=== PATIENT | male | born 1990 | race Caucasian/White ===

== ENCOUNTER 2017-02-17 16:13 | Emergency (ER) | payer SELFPAY ==
[~2017-02-17] VITALS: Ht 170.2 cm; Wt 65.0 kg
[2017-02-17] MEDS ORDERED: CEFAZOLIN 1,000 MG IM ONE (16:17)
[2017-02-17] MEDS ORDERED: LIDOCAINE 1%-EPI 1:100K, 50ML INFIL ONE (16:30)
[2017-02-17] MEDS ORDERED: CEFAZOLIN PMX 1GM/50ML 50 ML IVPB ONE (16:30)
[2017-02-17] MEDS ORDERED: LIDOCAINE 1%, 20ML ONE (16:30)
[2017-02-17] MEDS ORDERED: CEFAZOLIN PMX 1GM/50ML 50 ML ONE (16:33)
[2017-02-17] MEDS ORDERED: DIPH,PERTUSS(ACELL),TET VAC/PF 0.5 ML IM-VACC ONE ×2 (18:30→18:40)
[2017-02-17 18:56] VITALS: BP 120/71
== END 2017-02-17 18:58 | disposition home or self-care (01) ==
LOC: ED 18:49
DX: S01.511A Laceration without foreign body of lip, initial encounter (principal); Z23 Encounter for immunization; Y08.89XA Assault by other specified means, initial encounter; Y93.89 Activity, other specified; Y99.8 Other external cause status; Y92.009 Unspecified place in unspecified non-institutional (private) residence as the place of occurrence of the external cause
CPT/HCPCS: 13132; 70486; 90471; 90715; 96365; 99285; J0690

== ENCOUNTER 2019-02-15 00:27 | Emergency (ER) | payer SELFPAY ==
[~2019-02-15] VITALS: Ht 160 cm; Wt 61.2 kg
[2019-02-15 00:29] VITALS: BP 121/79
== END 2019-02-15 01:53 | disposition home or self-care (01) ==
LOC: ED 01:20
DX: S60.222A Contusion of left hand, initial encounter (principal); F17.200 Nicotine dependence, unspecified, uncomplicated; X58.XXXA Exposure to other specified factors, initial encounter; Y93.89 Activity, other specified; Y92.830 Public park as the place of occurrence of the external cause; Y99.8 Other external cause status
CPT/HCPCS: 12041; 99284

== ENCOUNTER 2019-08-08 14:42 | Inpatient (IN) | payer OTHER ==
[~2019-08-08] VITALS: Ht 180.3 cm; Wt 63.8 kg
[2019-08-08] MEDS ORDERED: KETOROLAC 60 MG/2 ML ONE (15:58)
[2019-08-08] MEDS ORDERED: SODIUM CHLORIDE 0.9% 1,000ML IVBOLUS ONE (16:00)
[2019-08-08] MEDS ORDERED: KETOROLAC 30 MG/1 ML IM/IV ONE (16:00)
[2019-08-08 16:05] LABS: ANION GAP 9 mmol/L (5-15); CALCIUM 8.9 mg/dL (8.5-10.1); CHLORIDE 102 mmol/L (98-107); CREATININE 1.02 mg/dL (0.7-1.3)
[2019-08-08 16:15] LABS: MEAN CORPUSCULAR HGB CONC 33.4 g/dL (33.2-36.2); MEAN CORPUSCULAR VOLUME 95.8 fL (81-97); MEAN PLATELET VOLUME 7.9 fL (7.4-10.4); PLATELET COUNT 286 x10^3/uL (130-400); RED BLOOD COUNT 5.18 x10^6/uL (4.38-5.82); RED CELL DISTRIBUTION WIDTH 13.5 % (9.4-14.8)
[2019-08-08 16:29] LABS: MD YES
[2019-08-08 16:31] LABS: <PLATELET ESTIMATE> ADEQUATE; <PLT MORPHOLOGY> NORMAL PLT MORPH; <RBC MORPHOLOGY> NORMAL; BAND#(MANUAL) 1.73 x10^3/uL; BANDS%(MANUAL) 12 % (0-7); LYMPH#(MANUAL) 1.15 x10^3/uL (1-3.4); LYMPHS% (MANUAL) 8 % (22-44); MONOS% (MANUAL) 9 % (2-9); SEG#(MANUAL) 10.22 x10^3/uL (1.8-6.8); SEGS% (MANUAL) 71 % (42-75)
[2019-08-08] MEDS ORDERED: AMPICILLIN/SULBACTAM 3 GM in SODIUM CHLORIDE 0.9% 100 ML IV ONE (17:30)
--- NOTE | 2019-08-08 17:31 | NUR ---
PT IN CT NOW
[2019-08-08] MEDS ORDERED: OMNIPAQUE 350 MG/ML, 75ML BOTTLE ONE (17:37)
--- NOTE | 2019-08-08 17:50 | NUR ---
UP TO RESTROOM FOR UA. AMBULATES WITH A STEADY GAIT.
--- NOTE | 2019-08-08 17:56 | NUR ---
dr danielle spoke with dr cornelius
[2019-08-08 18:20] LABS: MICROSCOPIC NOT IND
[2019-08-08 18:24] LABS: CULTURE INDICATED? NO
[2019-08-08 18:29] LABS: AMPHETAMINE SCREEN, URINE Positive (Negative); BARBITURATE SCREEN, URINE Negative (Negative); BENZODIAZEPINE SCREEN, URINE Negative (Negative); CANNABINOID SCREEN, URINE Negative (Negative); COCAINE SCREEN, URINE Negative (Negative); METHADONE SCREEN, URINE Negative (Negative); OPIATE SCREEN, URINE Negative (Negative)
[2019-08-08] MEDS ORDERED: MORPHINE SULFATE 4 MG/ML, 1ML IVPush PRN (18:30)
[2019-08-08] MEDS ORDERED: LIDOCAINE 1%-EPI 1:100K, 20ML ONE (19:18)
[2019-08-08] MEDS ORDERED: hydrALAzine 20 MG/ML, 1ML IVPush PRN (19:30)
[2019-08-08] MEDS ORDERED: ONDANSETRON ODT 4 MG PO PRN (19:30)
[2019-08-08] MEDS ORDERED: POLYETHYLENE GLYCOL 17 GM PACKET PO PRN (19:30)
[2019-08-08] MEDS ORDERED: DOCUSATE 100 MG CAPSULE PO PRN (19:30)
[2019-08-08] MEDS ORDERED: BISACODYL 10 MG SUPP PR PRN (19:30)
[2019-08-08] MEDS ORDERED: ONDANSETRON 2MG/ML, 2ML IVPush PRN (19:30)
[2019-08-08] MEDS ORDERED: ACETAMINOPHEN 325 MG TABLET PO PRN (19:30)
[2019-08-08] MEDS ORDERED: morphine SULFATE 10 MG/ML, 1ML IVPush PRN (19:30)
[2019-08-08] MEDS ORDERED: PROMETHAZINE 25 MG/ML, 1ML IM PRN (19:30)
[2019-08-08 20:25] VITALS: BP 120/83
[2019-08-08] MEDS: KETOROLAC 30 MG/1 ML IVPush SCH (21:13)
[2019-08-08] MEDS: SODIUM CHLORIDE 0.9% 1,000 ML IV SCH (21:14)
[2019-08-08 21:51] LABS: FREE T4 (FREE THYROXINE) 0.81 ng/dL (0.76-1.46)
[2019-08-08] MEDS: AMPICILLIN/SULBACTAM 3 GM in SODIUM CHLORIDE 0.9% 100 ML IV SCH (23:29)
[2019-08-09 00:58] VITALS: BP 129/87
[2019-08-09] MEDS: KETOROLAC 30 MG/1 ML IVPush SCH ×4 (02:55→20:30)
[2019-08-09 05:54] LABS: ALBUMIN 2.9 g/dL (3.4-5.0); ANION GAP 9 mmol/L (5-15); CALCIUM 8.5 mg/dL (8.5-10.1); CHLORIDE 106 mmol/L (98-107)
[2019-08-09 05:56] LABS: MEAN CORPUSCULAR HGB CONC 33.5 g/dL (33.2-36.2); MEAN CORPUSCULAR VOLUME 95.5 fL (81-97); MEAN PLATELET VOLUME 8.1 fL (7.4-10.4); PLATELET COUNT 232 x10^3/uL (130-400); RED BLOOD COUNT 4.11 x10^6/uL (4.38-5.82); RED CELL DISTRIBUTION WIDTH 13.4 % (9.4-14.8)
[2019-08-09 05:57] LABS: ALANINE AMINOTRANSFERASE 37 U/L (12-78); ALKALINE PHOSPHATASE 56 U/L (45-117); BILIRUBIN,TOTAL 0.5 mg/dL (0.2-1.0); CHOL/HDL RATIO 2.5; CHOLESTEROL, TOTAL 103 mg/dL (140-239); CREATININE 0.85 mg/dL (0.7-1.3); HDL CHOLESTEROL (DIRECT) 41 mg/dL (40-60); TOTAL PROTEIN 6.9 g/dL (6.4-8.2); TRIGLYCERIDES 57 mg/dL (50-200); VLDL CHOLESTEROL 11 mg/dL (0-25)
[2019-08-09 05:58] LABS: HDL CHOL % 40 % (26-37); LDL CHOLESTEROL,CALCULATED 51 mg/dL (54-169); LDL/HDL RATIO 1.2 (0.5-3.0)
[2019-08-09] MEDS: AMPICILLIN/SULBACTAM 3 GM in SODIUM CHLORIDE 0.9% 100 ML IV SCH ×4 (06:07→23:06)
[2019-08-09 06:22] VITALS: BP 110/74
[2019-08-09 06:47] LABS: BASOPHILS # (AUTO) 0.01 x10^3/uL (0-0.1); BASOPHILS % (AUTO) 0 % (0-1); EOSINOPHILS # (AUTO) 0.04 x10^3/uL (0-0.4); EOSINOPHILS % (AUTO) 0 % (1-7); LYMPHOCYTES # (AUTO) 1.25 x10^3/uL (1-3.4); LYMPHOCYTES % (AUTO) 10 % (22-44); MD SCAN; MONOCYTES # (AUTO) 1.62 x10^3/uL (0.2-0.8); MONOCYTES % (AUTO) 13 % (2-9); NEUTROPHILS # (AUTO) 9.36 x10^3/uL (1.8-6.8); NEUTROPHILS % (AUTO) 76 % (42-75)
[2019-08-09] MEDS: SODIUM CHLORIDE 0.9% 1,000 ML IV SCH (08:45)
[2019-08-09] MEDS ORDERED: POTASSIUM CHLORIDE 20 MEQ in SODIUM CHLORIDE 0.9% 250 ML IV ONE (09:30)
[2019-08-09] MEDS ORDERED: MAGNESIUM SULFATE PMX 2GM/50ML 50 ML IV ONE (09:30)
[2019-08-09] MEDS: MULTIVITS,STRESS FORMULA 1 TABLET PO SCH (09:42)
[2019-08-09 11:55] VITALS: BP 111/73
[2019-08-09] MEDS: OXYcodone IR 5MG TABLET PO PRN ×2 (12:13→17:23)
[2019-08-09] MEDS: DEXAMETHASONE 4 MG TABLET PO SCH ×2 (15:20→23:06)
[2019-08-09] MEDS: CHOLECALCIFEROL 400 UNITS TABLET PO SCH (15:21)
[2019-08-09] MEDS: ASCORBIC ACID 500 MG TABLET PO SCH (17:22)
[2019-08-09 19:46] VITALS: BP 127/84
[2019-08-10 01:16] VITALS: BP 128/82
[2019-08-10] MEDS: KETOROLAC 30 MG/1 ML IVPush SCH ×4 (03:10→20:50)
[2019-08-10] MEDS: AMPICILLIN/SULBACTAM 3 GM in SODIUM CHLORIDE 0.9% 100 ML IV SCH ×4 (05:11→23:34)
[2019-08-10 05:24] LABS: ANION GAP 7 mmol/L (5-15); BASOPHILS % (AUTO) 0 % (0-1); CHLORIDE 103 mmol/L (98-107); EOSINOPHILS % (AUTO) 0 % (1-7); LYMPHOCYTES # (AUTO) 0.41 x10^3/uL (1-3.4); LYMPHOCYTES % (AUTO) 4 % (22-44); MD NO; MEAN CORPUSCULAR HEMOGLOBIN 32.2 pg (27.5-34.5); MEAN CORPUSCULAR HGB CONC 33.6 g/dL (33.2-36.2); MEAN CORPUSCULAR VOLUME 95.7 fL (81-97); MONOCYTES % (AUTO) 3 % (2-9); NEUTROPHILS # (AUTO) 9.88 x10^3/uL (1.8-6.8); NEUTROPHILS % (AUTO) 93 % (42-75); PLATELET COUNT 265 x10^3/uL (130-400); RED BLOOD COUNT 4.07 x10^6/uL (4.38-5.82); RED CELL DISTRIBUTION WIDTH 13.2 % (9.4-14.8)
[2019-08-10 05:25] LABS: CREATININE 0.88 mg/dL (0.7-1.3)
[2019-08-10 06:48] VITALS: BP 114/72
[2019-08-10] MEDS: DEXAMETHASONE 4 MG TABLET PO SCH ×2 (08:07→16:53)
[2019-08-10] MEDS: ASCORBIC ACID 500 MG TABLET PO SCH ×2 (08:07→16:53)
[2019-08-10] MEDS: MULTIVITS,STRESS FORMULA 1 TABLET PO SCH (08:09)
[2019-08-10] MEDS: OXYcodone IR 5MG TABLET PO PRN (08:09)
[2019-08-10 12:37] VITALS: BP 111/61
[2019-08-10 13:01] VITALS: BP 112/75
[2019-08-10] MEDS: CHOLECALCIFEROL 400 UNITS TABLET PO SCH (16:53)
[2019-08-10 19:34] VITALS: BP 125/83
[2019-08-10] MEDS ORDERED: OMNIPAQUE 350 MG/ML, 75ML BOTTLE ONE (22:57)
[2019-08-11] MEDS: KETOROLAC 30 MG/1 ML IVPush SCH ×2 (03:00→09:00)
[2019-08-11] MEDS: AMPICILLIN/SULBACTAM 3 GM in SODIUM CHLORIDE 0.9% 100 ML IV SCH ×2 (05:28→11:30)
[2019-08-11 05:46] LABS: BASOPHILS % (AUTO) 0 % (0-1); EOSINOPHILS # (AUTO) 0.04 x10^3/uL (0-0.4); EOSINOPHILS % (AUTO) 0 % (1-7); LYMPHOCYTES % (AUTO) 6 % (22-44); MD NO; MEAN CORPUSCULAR HEMOGLOBIN 32.1 pg (27.5-34.5); MEAN CORPUSCULAR HGB CONC 33.4 g/dL (33.2-36.2); MEAN CORPUSCULAR VOLUME 96.1 fL (81-97); MONOCYTES # (AUTO) 1.03 x10^3/uL (0.2-0.8); MONOCYTES % (AUTO) 8 % (2-9); NEUTROPHILS # (AUTO) 11.18 x10^3/uL (1.8-6.8); NEUTROPHILS % (AUTO) 86 % (42-75); PLATELET COUNT 317 x10^3/uL (130-400); RED BLOOD COUNT 3.77 x10^6/uL (4.38-5.82); RED CELL DISTRIBUTION WIDTH 13.9 % (9.4-14.8)
[2019-08-11 05:48] LABS: ALBUMIN 2.9 g/dL (3.4-5.0); ANION GAP 8 mmol/L (5-15); CALCIUM 8.4 mg/dL (8.5-10.1); CHLORIDE 108 mmol/L (98-107)
[2019-08-11 05:49] LABS: CREATININE 0.68 mg/dL (0.7-1.3)
[2019-08-11] MEDS ORDERED: LIDOCAINE 1%-EPI 1:100K, 20ML ONE (06:12)
[2019-08-11] MEDS ORDERED: BUPIVACAINE/PF-EPI 0.25% 1:200K ONE (06:12)
[2019-08-11] MEDS ORDERED: MIDAZOLAM 1 MG/ML, 2ML ONE ×3 (06:40→07:51)
[2019-08-11] MEDS ORDERED: FENTANYL PF 100 MCG/2ML ONE ×2 (06:40→08:24)
[2019-08-11] MEDS ORDERED: HYDROmorphone 2 MG/ML, 1ML IVPush PRN (07:00)
[2019-08-11] MEDS ORDERED: MEPERIDINE/PF 25MG/ML,1ML IVPush PRN (07:00)
[2019-08-11] MEDS ORDERED: MIDAZOLAM 1 MG/ML, 2ML IV PRN (07:00)
[2019-08-11] MEDS ORDERED: ACETAMINOPHEN 325 MG TABLET PO PRN (07:00)
[2019-08-11] MEDS ORDERED: hydrALAzine 20 MG/ML, 1ML IV PRN (07:00)
[2019-08-11] MEDS ORDERED: FENTANYL PF 100 MCG/2ML IV PRN (07:00)
[2019-08-11] MEDS ORDERED: PROMETHAZINE 25 MG/ML, 1ML IV PRN (07:00)
[2019-08-11] MEDS ORDERED: ALBUTEROL/IPRATROPIUM 2.5MG/0.5MG, 3 ML NPPB PRN (07:00)
[2019-08-11] MEDS ORDERED: METOPROLOL 1 MG/ML, 5ML IV PRN (07:00)
[2019-08-11] MEDS ORDERED: OXYcodone 5 MG/5 ML ORAL.SOL UDC PO PRN (07:00)
[2019-08-11] MEDS ORDERED: PROPOFOL 10 MG/ML, 20ML ONE (07:13)
[2019-08-11] MEDS ORDERED: ONDANSETRON 2MG/ML, 2ML ONE (07:13)
[2019-08-11] MEDS ORDERED: DEXAMETHASONE 4 MG/ML, 1ML ONE (07:13)
[2019-08-11] MEDS ORDERED: SUCCINYLCHOLINE 20 MG/ML, 10ML ONE (07:13)
[2019-08-11] MEDS ORDERED: ESMOLOL 100 MG/10 ML ONE (07:22)
[2019-08-11] MEDS ORDERED: MEPERIDINE/PF 25MG/ML,1ML ONE (07:50)
[2019-08-11] MEDS: ASCORBIC ACID 500 MG TABLET PO SCH (08:00)
[2019-08-11] MEDS: MULTIVITS,STRESS FORMULA 1 TABLET PO SCH (09:00)
[2019-08-11] MEDS ORDERED: IBUP-1223 PO (09:34)
[2019-08-11] MEDS ORDERED: ACET325T26 PO (09:34)
== END 2019-08-11 12:20 | disposition home or self-care (01) | DRG 854 ==
LOC: ED 14:58 → EDIP 18:02 → 4WST 19:09
PROVIDERS: ADMIT Internal Medicine; ATTEND Family Medicine
PROC: 0NQT0ZZ Repair Right Mandible, Open Approach (ICD-10-PCS; 2019-08-11)
PROC: 0CDXXZ1 Extraction of Lower Tooth, Multiple, External Approach (ICD-10-PCS; principal; 2019-08-11 07:00)
DX: A41.9 Sepsis, unspecified organism (principal); K12.2 Cellulitis and abscess of mouth; E87.6 Hypokalemia; F12.90 Cannabis use, unspecified, uncomplicated; F15.10 Other stimulant abuse, uncomplicated; F17.210 Nicotine dependence, cigarettes, uncomplicated; K02.9 Dental caries, unspecified; M27.2 Inflammatory conditions of jaws
CPT/HCPCS: 36415; 70100; 70487; 80048; 80053; 80061; 80069; 80307; 81003; 82962; 83036; 83605; 83735; 84439; 84443; 85025; 87040; 87070; 87075; 87205; 87806; 96361; 96365; G0378; J0295; J1100; J1885; J2250; J2405; J2704; J3010; J3480; J3490; Q9967; G0475; J0330; J2175; J2270; J3475; J7030; J7050